=== PATIENT | male | born 1960 | race Caucasian/White ===

== ENCOUNTER 2018-11-17 13:15 | Emergency (ER) | payer OTHER ==
[~2018-11-17] VITALS: Ht 170.2 cm; Wt 79.4 kg
--- NOTE | 2018-11-17 13:53 | NUR ---
PT BROUGHT IN BY [facility] FOR From [facility] [place] "Acute onset of chest pain after smoking" PT ALER AND ORIENTED REQUESTING FOOD EKG BEING DONE PIV PLACED LABS DONE WELL. PT NSR ON BEDSIDE MONITOR PT DENIES NAUSEA, VOMTING, RADIATIN LEFT ARM PAIN OR SWEATING. WILL CONTINUE TO ARUN MINAYA ORDERS IMPLEMENTED.
[2018-11-17 13:54] LABS: BASOPHILS % (AUTO) 0.8 % (0.0-2.0); EOSINOPHILS % (AUTO) 5.7 % (0.0-6.0); HEMATOCRIT 41 % (39-51); HEMOGLOBIN 14.2 g/dL (13.5-17.5); LYMPHOCYTES # (AUTO) 1.4 /CMM (0.8-4.8); LYMPHOCYTES % (AUTO) 29.3 % (20.0-44.0); MEAN CORPUSCULAR HGB CONC 34 g/dl (31.0-36.0); MEAN CORPUSCULAR VOLUME 91 fL (80-96); MONOCYTES # (AUTO) 0.5 /CMM (0.1-1.30); MONOCYTES % (AUTO) 10.1 % (2.0-12.0); NEUTROPHILS # (AUTO) 2.5 /CMM (1.8-8.9); NEUTROPHILS % (AUTO) 54.1 % (43.0-81.0); PLATELET COUNT (AUTO) 208 /CMM (150-450); RED BLOOD CELL COUNT(AUTO) 4.55 MIL/uL (4.5-6.0); WHITE BLOOD COUNT (AUTO) 4.6 K/uL (4.3-11.0)
[2018-11-17 14:02] LABS: CALCIUM, SERUM 8.9 mg/dL (8.5-10.1); CARBON DIOXIDE 27 mmol/L (21-32); CHLORIDE 104 mmol/L (98-107); CREATININE 0.7 mg/dL (0.6-1.3); GLUCOSE 116 mg/dL (74-106); POTASSIUM 4.1 mmol/L (3.5-5.1); SODIUM SERUM 139 mmol/L (136-145); UREA NITROGEN, BLOOD 25 mg/dL (7-18)
--- NOTE | 2018-11-17 16:18 | NUR ---
PT VITAL SIGNS STABLE ON [employer] NO CHEST PAIN OR SHORTNESS OF BREATH NOTED
--- NOTE | 2018-11-17 17:16 | NUR ---
[facility] E[id number]
--- NOTE | 2018-11-17 18:30 | NUR ---
[facility] ETA WILL BE AT 2030
--- NOTE | 2018-11-17 19:15 | NUR ---
pt in bed sleeping. easily arrousable. report received from RACHEL Matta for [facility]. Pt awaiting for transport to [facility]. Medically cleared by
[2018-11-17] MEDS ORDERED: ASPIRIN 325 MG TABLET PO ONE (19:30)
[2018-11-17] MEDS ORDERED: ASPIRIN 325 MG TABLET ONE (19:51)
--- NOTE | 2018-11-17 22:01 | NUR ---
viktoriya at bedside fot pt transport to [facility]. Report given to [facility] staff. Pt is stable to be transported. Nad, breahting even and unlabored.
[2018-11-17 22:17] VITALS: BP 116/70
== END 2018-11-17 22:15 | disposition home or self-care (01) ==
LOC: ER 13:20
DX: R07.89 Other chest pain (principal); I10 Essential (primary) hypertension; E78.5 Hyperlipidemia, unspecified; J44.9 Chronic obstructive pulmonary disease, unspecified; I25.10 Atherosclerotic heart disease of native coronary artery without angina pectoris; Z95.818 Presence of other cardiac implants and grafts
CPT/HCPCS: 36415; 71045-TC; 80048-TC; 84484-TC; 85025-TC